=== PATIENT | male | born 1950 | race Caucasian/White ===

== ENCOUNTER 2020-12-17 21:09 | Inpatient (IN) | payer OTHER ==
[2020-12-17] MEDS ORDERED: Senokot S 8.6-50 MG TAB PO PRN (21:34)
[2020-12-17] MEDS ORDERED: Acetaminophen 325 MG TAB PO PRN (21:34)
[2020-12-17] MEDS ORDERED: Dextrose 5% in Water 1,000 ML IV PRN (21:39)
[2020-12-17] MEDS ORDERED: Dextrose 50% Abboject 50 ML SYRINGE SLOW IVP PRN (21:39)
[2020-12-17] MEDS ORDERED: HumaLOG 300 UNITS/3 ML VIAL SC PRN (21:39)
[2020-12-17] MEDS ORDERED: guaiFENesin ER 600 MG TAB PO SCH (21:45)
[2020-12-17] MEDS ORDERED: Potassium Chloride 20 MEQ TAB PO SCH (21:45)
[2020-12-17] MEDS ORDERED: VANCOMYCIN 2 GRAM/400 ML BAG IVPB SCH (22:00)
[2020-12-17] MEDS: Cefepime 2 GM in Sodium Chloride 0.9% 100 ML IVPB SCH (22:21)
[2020-12-17 22:42] LABS: INR-International Normal Ratio 1.1; PTT 29.8 sec (22.0-33.0); Prothrombin Time 11.2 sec (9.5-12.1)
[2020-12-17] MEDS: Lactated Ringer's 1,000 ML IV SCH (22:50)
[2020-12-17] MEDS ORDERED: Vancomycin HCl 1 GM in Sodium Chloride 0.9% 250 ML 250 ML IVPB SCH (23:30)
[2020-12-18 01:04] VITALS: BMI 26.4
[2020-12-18] MEDS ORDERED: Vancomycin 1.5 GRAM/300 ML BAG 1.5 GM in Premix Bag 1 BAG IVPB SCH ×2 (04:00→10:00)
[2020-12-18 06:00] LABS: #Monocytes 0.3 10x3/uL (0.0-1.1); #Neutrophils 4.2 10x3/uL (1.5-8.4); %Basophils 0.4 % (0.0-2.0); %Lymphocytes 9.1 % (18.0-47.0); %Monocytes 6.5 % (0.0-10.0); %Neutrophils 83.2 % (40.0-75.0); Anion Gap 10 mmol/L (10-20); BUN (Urea Nitrogen) 14 mg/dL (8.4-25.7); Calc. Creatinine Clearance 96 mL/min (70-130); Calcium 7.7 mg/dL (7.8-10.44); Carbon Dioxide 24 mmol/L (23-31); Chloride 104 mmol/L (98-107); Glucose 127 mg/dL (80-115); Hemoglobin 13.1 g/dL (13.5-17.5); Mean Corpuscular HGB CONC 35.4 g/dL (32.0-36.0); Mean Corpuscular Hemoglobin 32.1 pg (27.0-33.0); Mean Corpuscular Volume 90.7 fl (81.2-95.1); Mean Platelet Volume 910.3 fl (7.4-10.4); Platelet Count 83 10x3/uL (150-450); Potassium 3.9 mmol/L (3.5-5.1); RBC Distribution Width 11.8 % (11.5-14.5); Red Blood Cell (RBC) Count 4.08 10x6/uL (4.32-5.72); Sodium 134 mmol/L (136-145); White Blood Cell (WBC) Count 5.1 10x3/uL (3.5-10.5)
[2020-12-18] MEDS: Cefepime 2 GM in Sodium Chloride 0.9% 100 ML IVPB SCH (06:25)
[2020-12-18] MEDS: Lactated Ringer's 1,000 ML IV SCH ×3 (07:22→17:22)
[2020-12-18] MEDS: Enoxaparin Sodium 40 MG/0.4 ML SYRINGE SC SCH (08:22)
[2020-12-18] MEDS: guaiFENesin ER 600 MG TAB PO SCH ×2 (08:26→21:50)
[2020-12-18] MEDS: VANCOMYCIN 1.25 GM/250 ML BAG 1.25 GM in Premix Bag 1 BAG IVPB SCH (12:08)
[2020-12-19] MEDS: Lactated Ringer's 1,000 ML IV SCH ×4 (00:29→20:45)
[2020-12-19] MEDS: VANCOMYCIN 1.25 GM/250 ML BAG 1.25 GM in Premix Bag 1 BAG IVPB SCH (00:40)
[2020-12-19 04:56] LABS: ALT (SGPT) 124 U/L (8-55); AST (SGOT) 116 U/L (5-34); Albumin 3.1 g/dL (3.4-4.8); Alkaline Phosphatase 81 U/L (40-110); Anion Gap 12 mmol/L (10-20); BUN (Urea Nitrogen) 8 mg/dL (8.4-25.7); Bilirubin, Total 0.6 mg/dL (0.2-1.2); Calc. Creatinine Clearance 90 mL/min (70-130); Calcium 7.8 mg/dL (7.8-10.44); Carbon Dioxide 27 mmol/L (23-31); Chloride 102 mmol/L (98-107); Glucose 121 mg/dL (80-115); Magnesium 1.6 mg/dL (1.6-2.6); Potassium 4.2 mmol/L (3.5-5.1); Protein, Total 5.1 g/dL (5.8-8.1); Sodium 137 mmol/L (136-145)
[2020-12-19 05:18] LABS: Hemoglobin 12.5 g/dL (13.5-17.5); Mean Corpuscular HGB CONC 34.8 g/dL (32.0-36.0); Mean Corpuscular Hemoglobin 31.7 pg (27.0-33.0); Mean Corpuscular Volume 91.1 fl (81.2-95.1); Mean Platelet Volume 10.9 fl (7.4-10.4); Platelet Count 80 10x3/uL (150-450); RBC Distribution Width 11.8 % (11.5-14.5); Red Blood Cell (RBC) Count 3.94 10x6/uL (4.32-5.72); White Blood Cell (WBC) Count 5.2 10x3/uL (3.5-10.5)
[2020-12-19 05:53] LABS: MDiff Complete? YES
[2020-12-19 05:56] LABS: Band 19 % (5-11); Lymphocytes 18 % (21-51); Metamyelocyte 1 % (0-0); Monocytes 11 % (0-10); Neutrophil 51 % (42-75)
[2020-12-19 05:58] LABS: Platelet Morphology Comment Appears Decreased; RBC Morphology Normal
[2020-12-19] MEDS: Enoxaparin Sodium 40 MG/0.4 ML SYRINGE SC SCH (08:08)
[2020-12-19] MEDS: guaiFENesin ER 600 MG TAB PO SCH ×2 (08:10→20:45)
[2020-12-19] MEDS ORDERED: Loperamide HCl 2 MG CAP PO PRN (08:37)
[2020-12-19 12:25] LABS: Vancomycin, Trough 9.3 ug/mL
[2020-12-19] MEDS: Vancomycin 1.5 GRAM/300 ML BAG 1.5 GM in Premix Bag 1 BAG IVPB SCH (13:18)
[2020-12-19] MEDS: Cepastat Lozenges 1 LOZ PO PRN ×2 (16:17→21:07)
[2020-12-20] MEDS: Vancomycin 1.5 GRAM/300 ML BAG 1.5 GM in Premix Bag 1 BAG IVPB SCH ×2 (01:15→12:29)
[2020-12-20] MEDS: Lactated Ringer's 1,000 ML IV SCH ×3 (03:59→16:32)
[2020-12-20 05:55] LABS: ALT (SGPT) 174 U/L (8-55); AST (SGOT) 164 U/L (5-34); Albumin 3.2 g/dL (3.4-4.8); Alkaline Phosphatase 104 U/L (40-110); Anion Gap 13 mmol/L (10-20); BUN (Urea Nitrogen) 6 mg/dL (8.4-25.7); Bilirubin, Total 0.4 mg/dL (0.2-1.2); Calc. Creatinine Clearance 102 mL/min (70-130); Calcium 8.1 mg/dL (7.8-10.44); Carbon Dioxide 27 mmol/L (23-31); Chloride 102 mmol/L (98-107); Globulin 2.2 g/dL (2.4-3.5); Glucose 114 mg/dL (80-115); Potassium 4.1 mmol/L (3.5-5.1); Protein, Total 5.4 g/dL (5.8-8.1); Sodium 138 mmol/L (136-145)
[2020-12-20 05:56] LABS: #Eosinphils 0.3 10x3/uL (0.0-0.5); #Monocytes 0.9 10x3/uL (0.0-1.1); #Neutrophils 4.4 10x3/uL (1.5-8.4); %Basophils 0.6 % (0.0-2.0); %Eosinophils 3.9 % (0.0-6.0); %Lymphocytes 19.9 % (18.0-47.0); %Monocytes 12.7 % (0.0-10.0); %Neutrophils 61.9 % (40.0-75.0); Hemoglobin 12.3 g/dL (13.5-17.5); Mean Corpuscular HGB CONC 34.4 g/dL (32.0-36.0); Mean Corpuscular Volume 90.2 fl (81.2-95.1); Mean Platelet Volume 11.2 fl (7.4-10.4); Platelet Count 108 10x3/uL (150-450); Red Blood Cell (RBC) Count 3.97 10x6/uL (4.32-5.72); White Blood Cell (WBC) Count 7.1 10x3/uL (3.5-10.5)
[2020-12-20] MEDS: Enoxaparin Sodium 40 MG/0.4 ML SYRINGE SC SCH (08:25)
[2020-12-20] MEDS: guaiFENesin ER 600 MG TAB PO SCH (08:26)
[2020-12-20 16:15] VITALS: BP 164/81; TEMP 97.6
== END 2020-12-20 16:32 | disposition home or self-care (01) | DRG 872 ==
LOC: CSHTELE 21:09
PROVIDERS: ADMIT Family Medicine; ATTEND Internal Medicine
DX: A41.9 Sepsis, unspecified organism (principal); K52.9 Noninfective gastroenteritis and colitis, unspecified; Z20.822 Contact with and (suspected) exposure to COVID-19; J44.9 Chronic obstructive pulmonary disease, unspecified; E78.5 Hyperlipidemia, unspecified; E03.9 Hypothyroidism, unspecified; D69.6 Thrombocytopenia, unspecified; I12.9 Hypertensive chronic kidney disease with stage 1 through stage 4 chronic kidney disease, or unspecified chronic kidney disease; N18.31 Chronic kidney disease, stage 3a; Z88.2 Allergy status to sulfonamides; E11.22 Type 2 diabetes mellitus with diabetic chronic kidney disease; E86.0 Dehydration
CPT/HCPCS: 36415; 36416; 74177; 80048; 80053; 80202; 82274; 83605; 83630; 83735; 84145; 84443; 85025; 85610; 85730; 86403; 87045; 87046; 87324; 87427; 87449; 94640; 94760; J0692; J1650; J1956; J3370; J3475; J3490; J7050; J7120; J7620